=== PATIENT | female | born 1955 | race Caucasian/White ===

== ENCOUNTER → 2024-03-07 06:33 | Day surgery (SDC) | payer MEDICARE, OTHER, SELFPAY | LOC: GI 06:33 | PROVIDERS: ATTENDING PHYSICIAN Internal Medicine; FAMILY PHYSICIAN Family Medicine | DX: Z12.11 Encounter for screening for malignant neoplasm of colon (principal); K57.30 Diverticulosis of large intestine without perforation or abscess without bleeding; K64.8 Other hemorrhoids; K44.9 Diaphragmatic hernia without obstruction or gangrene; K31.7 Polyp of stomach and duodenum; K31.89 Other diseases of stomach and duodenum; K21.9 Gastro-esophageal reflux disease without esophagitis; R12 Heartburn; Z86.0100 Personal history of colon polyps, unspecified; Z80.0 Family history of malignant neoplasm of digestive organs | CPT/HCPCS: 43251; 43239; G0105; 88305; 88342 ==

== ENCOUNTER 2024-05-30 06:15 | Day surgery (SDC) | payer MEDICARE, OTHER, SELFPAY ==
[2024-05-30 07:17] VITALS: BMI 26.8
[2024-05-30 07:18] VITALS: BP 116/62
[2024-05-30 07:32] LABS: Glucose - Point of Care 113 mg/dl (70-99)
[2024-05-30 08:52] VITALS: BP 104/55
[2024-05-30 09:00] VITALS: BP 110/62
[2024-05-30 09:15] VITALS: BP 131/55
[2024-05-30] MEDS: PROTONIX 40 MG PO (09:25)
[2024-05-30 09:30] VITALS: BP 111/60
== END 2024-05-30 09:40 | disposition home or self-care (01) ==
LOC: GI 06:15
PROVIDERS: ATTENDING PHYSICIAN Internal Medicine Gastroenterology
DX: R10.13 Epigastric pain (principal); K31.7 Polyp of stomach and duodenum
CPT/HCPCS: 43251; 88305; 82962

== ENCOUNTER → 2024-06-07 08:47 | Outpatient (REF) | payer MEDICARE, OTHER, SELFPAY | LOC: HWRAD 08:47 | PROVIDERS: ATTENDING PHYSICIAN Family Medicine | DX: M81.0 Age-related osteoporosis without current pathological fracture (principal); Z12.31 Encounter for screening mammogram for malignant neoplasm of breast | CPT/HCPCS: 77063; 77067; 77080 ==

== ENCOUNTER → 2025-01-21 10:45 | Outpatient (REF) | payer MEDICARE, OTHER, SELFPAY | LOC: RAD 10:45 | PROVIDERS: ATTENDING PHYSICIAN Internal Medicine; FAMILY PHYSICIAN Family Medicine | DX: R10.9 Unspecified abdominal pain (principal); R55 Syncope and collapse | CPT/HCPCS: 74177; Q9967 ==